=== PATIENT | female | born 1990 | race Caucasian/White ===

== ENCOUNTER 2016-03-31 22:50 | Emergency (ER) | payer OTHER ==
[~2016-03-31] VITALS: Ht 170.2 cm; Wt 77.7 kg
[2016-03-31 22:55] VITALS: TEMP 36.8; Ht 170.2 cm; Wt 77.7 kg
[2016-03-31] MEDS ORDERED: SODIUM CHLORIDE 0.9% 1000ML 1,000 ML IV STA (23:13)
[2016-03-31] MEDS ORDERED: ONDANSETRON INJ 2 MG/ML 2 ML VIAL IV STA (23:13)
[2016-03-31 23:26] LABS: BASO % 0.2 %; BASO ABS # 0.01 K/uL (0-0.2); COMPLETE YES; EOS % 1.2 %; HEMATOCRIT 38.4 % (37-47); IG% 0.2 %; LYMPH % 33.7 %; LYMPH ABS # 2.04 K/uL (1.2-3.4); MEAN CELL VOLUME 88.9 fL (80-100); MEAN CORPUSCULAR HEMOGLOBIN 31.3 pg (25-34); MEAN CORPUSCULAR HGB CONC 35.2 g/dl (32-36); MEAN PLATELET VOLUME 10.8 fL (7.4-10.4); MONO % 6.4 %; NEUT % 58.3 %; PLATELET COUNT 202 K/uL (130-400); RED BLOOD COUNT 4.32 M/uL (4.2-5.4); WHITE BLOOD COUNT 6.05 K/uL (4.8-10.8)
[2016-03-31 23:44] LABS: URINE APPEARANCE CLEAR (CLEAR); URINE BILIRUBIN NEG (NEG); URINE COLOR YELLOW; URINE EPITHELIAL CELL AUTO >30 /lpf (0-5); URINE NITRITE NEG (NEG); URINE PH 6.5 (4.5-7.5); URINE SPECIFIC GRAVITY 1.023 (1.000-1.030); UROBILINOGEN NEG (NEG); ZZUR CULT IF INDIC CLEAN CATCH NO
[2016-03-31 23:45] LABS: MANUAL MICROSCOPIC REQUIRED? NO; REVIEW REQ? NO
[2016-03-31 23:49] LABS: BUN/CREATININE RATIO 14.5 (10-20); CREATININE 1.1 mg/dl (0.60-1.20); POTASSIUM 3.6 mmol/L (3.5-5.1)
[2016-03-31 23:53] LABS: PREG INTERNAL NEGATIVE QC NEG CLEAR BACKGROUND; PREG INTERNAL POSITIVE QC POS CONTROL LINE
[2016-04-01 01:31] VITALS: BP 110/61; PULSE 64; O2SAT 100
--- NOTE | 2016-04-01 04:58 | EMERGENCY ROOM VISIT NOTE ---
History First contact with patient: 22:59 Chief Complaint: ABDOMINAL PAIN Stated Complaint: ABDOMINAL PAIN,NAUSEA,WEEKNESS Nursing Triage Summary: pt was having intercourse and developed severe lower abdominal pain and nausea. continues to feel nauseated that worsens with movement. pain rating currently 2/10 and tolerable. pt currently has her period. History of Present Illness The patient is a 26 year old female who presents to the Emergency Room with complaints of pelvic pain while having intercourse tonight that is now very much resolved. Patient states she was on top having intercourse and developed severe pelvic pain. She is currently on her menstrual cycle. She describes the pain as severe, ranging in severity was 8 out of 10 now is down to 1 out of 10. Patient denies chest pain, back pain, flank pain, dyspnea, fever, urinary symptoms, chills, nausea, vomiting, diarrhea, vaginal itching or discharge. Patient is in a monogamous relationship. She does not feel at risk for STDs. Review of Systems See HPI for pertinent positives & negatives. A total of 10 systems reviewed and were otherwise negative. Past Medical/Surgical History Hypothyroidism depression, tonsillectomy, adenoidectomy Social History Smoking Status: Never Smoker Smokeless Tobacco Use: No Alcohol Use: occasionally Drug Use: none Marital Status: Housing Status: lives with family Occupation Status: [employer] student Allergies Coded Allergies: Sulfamethoxazole w/Trimethoprim (Verified Adverse Reaction, Intermediate, rash, 03/31/16) Physical Exam Vital Signs Date Time Temp Pulse Resp B/P Pulse Ox O2 Delivery O2 Flow Rate FiO2 04/01/16 01:31 64 18 110/61 100 04/01/16 00:47 64 18 110/61 100 Room Air 03/31/16 22:55 36.8 68 20 130/81 100 Room Air Physical Exam VITALS: Vitals are noted on the nurse's note and reviewed by myself. Vital signs stable. GENERAL: Pleasant female, in no acute distress, nondiaphoretic, well-developed well-nourished. SKIN: Capillary reflex less than 2 seconds. HEENT: Normocephalic. PERRLA. EOMI. Nares patent. Mucous membranes moist. Neck is supple without nuchal rigidity. HEART: Regular rate and rhythm without murmurs gallops or rubs. LUNGS: Clear to auscultation bilaterally without wheezes, rales or rhonchi. No retractions or accessory muscle use. ABDOMEN: Positive bowel sounds x 4. Normal tympanic percussion. Soft, nontender, without masses or organomegaly. Sandoval sign negative. No guarding or rebound tenderness. No CVA tenderness MUSCULOSKELETAL: No gross musculoskeletal defects. No pedal edema. No calf tenderness. NEURO: Patient was alert and oriented to person place and time. Normal sensation to light and sharp touch. No focal neurological deficits. Medical Decision & Procedures Laboratory Results 03/31/16 23:10 Red Blood Count 4.32, Mean Corpuscular Volume 88.9, Mean Corpuscular Hemoglobin 31.3, Mean Corpuscular Hemoglobin Concent 35.2, Mean Platelet Volume 10.8, Neutrophils (%) (Auto) 58.3, Lymphocytes (%) (Auto) 33.7, Monocytes (%) (Auto) 6.4, Eosinophils (%) (Auto) 1.2, Basophils (%) (Auto) 0.2, Neutrophils # (Auto) 3.53, Lymphocytes # (Auto) 2.04, Monocytes # (Auto) 0.39, Eosinophils # (Auto) 0.07, Basophils # (Auto) 0.01 03/31/16 23:10 Test 03/31/16 23:07 03/31/16 23:10 Urine Color YELLOW Urine Appearance CLEAR (CLEAR) Urine pH 6.5 (4.5-7.5) Urine Specific [place] 1.023 (1.000-1.030) Urine Protein NEG (NEG) Urine Glucose (UA) NEG (NEG) Urine Ketones TRACE (NEG) Urine Occult Blood 1+ (NEG) Urine Nitrite NEG (NEG) Urine Bilirubin NEG (NEG) Urine Urobilinogen NEG (NEG) Urine Leukocyte Esterase NEG (NEG) Urine WBC (Auto) 1-5 /hpf (0-5) Urine RBC (Auto) 5-10 /hpf (0-4) Urine Hyaline Casts (Auto) 1-5 /lpf (0-5) Urine Epithelial Cells (Auto) >30 /lpf (0-5) Urine Bacteria (Auto) NEG (NEG) White Blood Count 6.05 K/uL (4.8-10.8) Red Blood Count 4.32 M/uL (4.2-5.4) Hemoglobin 13.5 g/dL (12.0-16.0) Hematocrit 38.4 % (37-47) Mean Corpuscular Volume 88.9 fL (80-100) Mean Corpuscular Hemoglobin 31.3 pg (25-34) Mean Corpuscular Hemoglobin Concent 35.2 g/dl (32-36) Platelet Count 202 K/uL (130-400) Mean Platelet Volume 10.8 fL (7.4-10.4) Neutrophils (%) (Auto) 58.3 % Lymphocytes (%) (Auto) 33.7 % Monocytes (%) (Auto) 6.4 % Eosinophils (%) (Auto) 1.2 % Basophils (%) (Auto) 0.2 % Neutrophils # (Auto) 3.53 K/uL (1.4-6.5) Lymphocytes # (Auto) 2.04 K/uL (1.2-3.4) Monocytes # (Auto) 0.39 K/uL (0.11-0.59) Eosinophils # (Auto) 0.07 K/uL (0-0.5) Basophils # (Auto) 0.01 K/uL (0-0.2) RDW Standard Deviation 39.8 fL (36.4-46.3) RDW Coefficient of Variation 12.3 % (11.5-14.5) Immature Granulocyte % (Auto) 0.2 % Immature Granulocyte # (Auto) 0.01 K/uL (0.00-0.02) Anion Gap 8.0 mmol/L (3-11) Est Creatinine Clear Calc Drug Dose 84.0 ml/min Estimated GFR () 80.8 Estimated GFR (Non- 69.7 BUN/Creatinine Ratio 14.5 (10-20) Calcium Level 9.0 mg/dl (8.5-10.1) Human Chorionic Gonadotropin, Qual NEG (NEG) Medications Administered Medications (Trade) Dose Ordered Sig/Rona Route Start Time Stop Time Status Last Admin Dose Admin Sodium Chloride (Nss 1000ml) 1,000 ml @ 999 mls/hr Q1H1M STAT IV 03/31/16 23:13 04/01/16 00:13 DC 03/31/16 23:41 999 MLS/HR Ondansetron HCl (Zofran Inj) 4 mg NOW STAT IV 03/31/16 23:13 03/31/16 23:15 DC 03/31/16 23:41 4 MG ED Course Prior records/ancillary studies reviewed. Triage Nursing notes reviewed. Additional history obtained from The patient's history was concerning for suprapubic abdominal pain. Differential diagnosis: Differential diagnosis includes salpingitis, , ectopic , incomplete , septic , ruptured ovarian cyst, ovarian torsion, Mittelschmerz, endometritis, dysmenorrhea, appendicitis, PID, and others. Physical examination findings: As above. ER treatment provided: IV fluids On reassessment the patient felt better. Diagnostics interpreted by me: The labs revealed no worrisome anemia or electrolyte abnormality. Negative hCG and urine Imaging studies: US PELVIC/ENDOVAG: No comparison. Uterus is within normal limits measuring 7.3 x 3.4 x 5.2 cm. Endometrial stripe is normal measuring 0.4 cm. Right ovary measures 6.5 x 4.6 x 5.4 cm and contains a large cystic lesion measuring up to 5.8 cm, which demonstrates diffuse low level internal echoes and fluid fluid levels. Differential considerations include a hemorrhagic cyst versus endometrioma. Follow-up is recommended in 6- 12 weeks to ensure resolution. There is normal blood flow to the right ovary. Left ovary measures 5.1 x 2.9 x 4.3 cm and also contains a cyst measuring up to 2.8 cm with diffuse lowlevel internal echogenicity and fluid fluid levels as well. This is most likely a hemorrhagic cyst although endometrioma can have a similar appearance. This may be followed up in 6-12 weeks to ensure resolution, as well. Normal blood flow to the left ovary is noted. Small amount of free fluid is present in the pelvis. Radiologist: Kasi Farias MD Exam and history seem consistent with ovarian cyst most likely one that has ruptured that cause her pain that is now resolved. Patient was advised repeat pelvic ultrasound in 6 weeks for resolution of cyst. She is advised to follow- up with OB in a few days or here in the ER sooner for abdominal pain, fevers, vomiting, worsening signs or symptoms or as needed. Negative hCG. Negative urinalysis. Stable H&H.By the evaluation outlined above emergent etiologies such as appendicitis, torsion, UTI as well as others were deemed relatively unlikely. The pt informed about the findings as listed above. All questions were answered and pleased with the treatment. Return instructions were outlined and the patient was discharged in stable condition. Referral: The patient was referred to [facility] for follow-up in 2 to 3 days for a recheck of the current condition. Case reviewed with my attending Medical Decision As above Impression Primary Impression: Bilateral ovarian cysts Departure Information Referrals [facility] (PCP) Patient Instructions My [facility]
--- NOTE | 2016-04-01 06:09 | DIAGNOSTIC IMAGING REPORT ---
EXAMINATION: PELVIC ULTRASOUND CLINICAL HISTORY: pelvic pain after sex PAIN COMPARISON STUDY: None FINDINGS: The uterus measured 7. Centimeters The endometrial stripe measured 4 mm. The right ovary measured 6 x 5 x 4 cm including a 5.8 cm cyst this is partially complex and a partially hemorrhagic. The left ovary measured 5 x 3 x 4 cm including a 3 cm slightly complex cyst. There is no ultrasonographic evidence of ovarian torsion. It should be noted that ovarian torsion can be present with normal Doppler ultrasonographic findings. There was no evidence of pathologic free pelvic fluid. IMPRESSION: Bilateral slightly complex ovarian cysts/partially hemorrhagic cyst. Otherwise negative study. Repeat study is recommended in 6-12 weeks to ensure resolution. Electronically signed by: Rl Tong M.D. 04/01/2016 6:07 AM Dictated Date/Time: 04/01/2016 6:05 AM
== END 2016-04-01 01:32 | disposition home or self-care (01) ==
LOC: MERGE 22:52 → C.EDB 22:52 → C.EDA 04-01 01:32
DX: N83.201 Unspecified ovarian cyst, right side (principal); N83.202 Unspecified ovarian cyst, left side